=== PATIENT | female | born 1945 | race Caucasian/White ===

== ENCOUNTER → 2016-04-28 | Outpatient (CLI) | payer MEDICARE, BC ==
[~2016-04-28] MED LIST: ALLEGRA 60MG TA60 MG PO; ATIVAN 0.50.5 MG/TAB PO; ELAVIL50 MG PO; FOSAMAX 70MG TA70 MG PO; MVI; NASOCORT; OSCAL 500MG/VI500 MG PO; PROTONIX 40MG T40 MG PO; PROTONIX20 MG PO; VITAMIN C500 MG PO
== END ==
LOC: MC.RAD 09:00
DX: Z12.31 Encounter for screening mammogram for malignant neoplasm of breast (principal)

== ENCOUNTER → 2017-05-18 | Outpatient (CLI) | payer MEDICARE, BC | LOC: MC.RAD 08:40 | DX: Z12.31 Encounter for screening mammogram for malignant neoplasm of breast (principal) ==

== ENCOUNTER → 2018-05-06 | Outpatient (CLI) | payer MEDICARE, BC | LOC: COL.RAD 11:14 | DX: K92.1 Melena (principal) ==

== ENCOUNTER → 2018-05-30 | Outpatient (CLI) | payer MEDICARE, BC | LOC: COL.RAD 08:15 | DX: G31.9 Degenerative disease of nervous system, unspecified (principal); I67.82 Cerebral ischemia; I67.1 Cerebral aneurysm, nonruptured | CPT/HCPCS: A9585 ==

== ENCOUNTER → 2018-07-08 | Outpatient (CLI) | payer MEDICARE, BC ==
[2018-07-08 09:15] VITALS: BP 175/94; PULSE 61
[2018-07-08 09:23] VITALS: BP 167/91; PULSE 59
== END ==
LOC: COL.RAD 08:14
DX: I67.1 Cerebral aneurysm, nonruptured (principal)
CPT/HCPCS: Q9967

== ENCOUNTER 2018-09-10 21:26 | Emergency (ER) | payer MEDICARE, BC ==
[~2018-09-10] VITALS: Ht 165.1 cm; Wt 65.9 kg
[2018-09-10 21:35] VITALS: BP 159/82; TEMP 97.5
[2018-09-10] MEDS ORDERED: LOTREL 5 MG-401 CAP PO (21:49)
[2018-09-10] MEDS ORDERED: CELEXA 20MG20 MG/TAB PO (21:50)
[2018-09-11] MEDS ORDERED: NORCO 325 MG-51 TAB PO (01:02)
[2018-09-11 01:40] VITALS: PULSE 80
== END 2018-09-11 01:45 | disposition home or self-care (01) ==
LOC: COL.ER 21:26
DX: S62.112A Displaced fracture of triquetrum [cuneiform] bone, left wrist, initial encounter for closed fracture (principal); S00.83XA Contusion of other part of head, initial encounter; I10 Essential (primary) hypertension; Z23 Encounter for immunization; W01.0XXA Fall on same level from slipping, tripping and stumbling without subsequent striking against object, initial encounter; Y92.410 Unspecified street and highway as the place of occurrence of the external cause
CPT/HCPCS: Q4021

== ENCOUNTER → 2019-01-11 | Outpatient (CLI) | payer MEDICARE, BC ==
[~2019-01-11] MED LIST changes: +CELEXA 20MG20 MG/TAB PO; +LOTREL 5 MG-401 CAP PO; +NORCO 325 MG-51 TAB PO
== END ==
LOC: MC.RAD 07:30
DX: Z12.31 Encounter for screening mammogram for malignant neoplasm of breast (principal)

== ENCOUNTER 2019-05-05 18:18 | Emergency (ER) | payer MEDICARE, BC ==
[~2019-05-05] VITALS: Ht 167.6 cm; Wt 67.3 kg
[2019-05-05 19:40] VITALS: BP 147/81; PULSE 67; TEMP 97.9
== END 2019-05-05 19:45 | disposition home or self-care (01) ==
LOC: COL.ER 18:18
DX: S00.83XA Contusion of other part of head, initial encounter (principal); S60.221A Contusion of right hand, initial encounter; I10 Essential (primary) hypertension; F32.9 Major depressive disorder, single episode, unspecified; K21.9 Gastro-esophageal reflux disease without esophagitis; R40.2412 Glasgow coma scale score 13-15, at arrival to emergency department; W01.198A Fall on same level from slipping, tripping and stumbling with subsequent striking against other object, initial encounter

== ENCOUNTER → 2020-01-17 | Outpatient (CLI) | payer MEDICARE, BC | LOC: MC.RAD 10:00 | DX: Z12.31 Encounter for screening mammogram for malignant neoplasm of breast (principal) ==

== ENCOUNTER → 2021-05-23 | Outpatient (CLI) | payer MEDICARE, BC | LOC: MC.RAD 08:57 | DX: N63.11 Unspecified lump in the right breast, upper outer quadrant (principal) ==

== ENCOUNTER → 2022-05-08 | Outpatient (CLI) | payer MEDICARE, BC | LOC: MC.RAD 07:56 | DX: N64.89 Other specified disorders of breast (principal) ==